=== PATIENT | male | born 1950 | race Asian ===

== ENCOUNTER 2018-08-08 16:24 | Inpatient (IN) | payer MEDICARE, OTHER ==
[~2018-08-08] VITALS: Ht 172.7 cm; Wt 71.2 kg
[2018-08-08] MEDS ORDERED: ATOR10TA84 PO (16:58)
[2018-08-08] MEDS ORDERED: METF-960 PO (16:58)
[2018-08-08] MEDS ORDERED: TELM20 PO (16:58)
[2018-08-08] MEDS ORDERED: INSU100C6 SQ (16:58)
[2018-08-08 17:23] LABS: BASOPHILS % (AUTO) 0.7 % (0.0-2.0); EOSINOPHILS % (AUTO) 3.3 % (1.0-6.0); HEMATOCRIT 40.9 % (41-53); HEMOGLOBIN 13.8 g/dL (13.5-17.5); LYMPHOCYTES # (AUTO) 1.8 K/uL (1.0-4.8); LYMPHOCYTES % (AUTO) 20.1 % (22.0-44.0); MEAN CORPUSCULAR HEMOGLOBIN 32.8 pg (26.0-34.0); MEAN CORPUSCULAR HGB CONC 33.8 G/dL (31.0-37.0); MEAN CORPUSCULAR VOLUME 97 fL (80-100); MONOCYTES # (AUTO) 0.6 K/uL (0.1-1.0); MONOCYTES % (AUTO) 6.9 % (2.0-9.0); NEUTROPHILS # (AUTO) 6.2 K/uL (1.8-7.7); PLATELET COUNT (AUTO) 266 K/uL (150-450); RED BLOOD CELL COUNT(AUTO) 4.21 MIL/uL (4.50-5.90)
[2018-08-08 17:36] LABS: PROTHROMBIN TIME 10.1 SEC (9.4-11.6)
[2018-08-08 17:37] LABS: ANION GAP 8 mmol/L (8-16); CALCIUM, TOTAL 9.4 mg/dL (8.8-10.5); CARBON DIOXIDE 30 mmol/L (22-29); CHLORIDE 100 mmol/L (98-107); CREATININE 0.99 mg/dL (0.60-1.30); GLOMERULAR FILTR. RATE CALC > 60 mL/min (>60); GLUCOSE,RANDOM 122 mg/dL (70-110); POTASSIUM 3.8 mmol/L (3.5-5.1); SODIUM SERUM 138 mmol/L (136-145); UREA NITROGEN, BLOOD 19 mg/dL (7-18)
[2018-08-08 17:40] LABS: ALANINE AMINOTRANSFERASE 41 U/L (12-78); ALBUMIN 3.9 g/dL (3.4-5.0); ALKALINE PHOSPHATASE 74 U/L (46-116); ASPARTATE AMINOTRANSFERASE 27 U/L (15-37); BILIRUBIN,TOTAL 0.5 mg/dL (0.1-1.0); TOTAL PROTEIN, SERUM 7.3 g/dL (6.4-8.2)
[2018-08-08 17:49] LABS: B-TYPE NATRIURETIC PEPTIDE 19 pg/mL (0-100)
[2018-08-08 18:04] LABS: LIPASE 4084 U/L (73-393)
[2018-08-08 18:19] LABS: APPEARANCE,URINE CLEAR (CLEAR); BILIRUBIN,URINE NEGATIVE (NEGATIVE); GLUCOSE, URINE (UA) 100 mg/dL (NEGATIVE); KETONES,URINE NEGATIVE (NEGATIVE); LEUKOCYTE ESTERASE ,URINE NEGATIVE (NEGATIVE); NITRATE,URINE NEGATIVE (NEGATIVE); OCCULT BLOOD,URINE NEGATIVE (NEGATIVE); PH,URINE 6.5 (5.0-8.0); PROTEIN,URINE NEGATIVE (NEGATIVE); UROBILINOGEN,URINE 0.2 mg/dL (<=1.0)
[2018-08-08 18:34] LABS: BACTERIA,URINE None Seen /HPF (None Seen); RBC,URINE None Seen /HPF (0-2); SQUAMOUS EPITHELIAL CELL,UR Rare /LPF (None Seen); WBC,URINE None Seen /HPF (0-5)
[2018-08-08] MEDS ORDERED: MAGNESIUM HYDROXIDE SUSPENSION 30 ML UDCUP PO PRN (21:00)
[2018-08-08] MEDS ORDERED: ONDANSETRON HCL 4 MG/2 ML VIAL IVP PRN (21:00)
[2018-08-08] MEDS ORDERED: MORPHINE SULFATE 4 MG/ML SYRINGE IVP PRN (21:00)
[2018-08-08] MEDS ORDERED: SODIUM CHLORIDE 0.9% 1,000 ML IV SCH (21:00)
[2018-08-08] MEDS ORDERED: DEXTROSE 50%-WATER 25 GM/50 ML SYRINGE IVP PRN (21:00)
[2018-08-08] MEDS ORDERED: ACETAMINOPHEN 325 MG TABLET PO PRN (21:00)
[2018-08-08] MEDS: PANTOPRAZOLE SODIUM 40 MG/VIAL IVP SCH (21:07)
[2018-08-08] MEDS: DOCUSATE SODIUM 100 MG CAPSULE PO SCH (21:18)
[2018-08-08 21:48] VITALS: BP 135/85
[2018-08-08] MEDS: METOPROLOL TARTRATE 25 MG TABLET PO SCH (22:13)
[2018-08-08] MEDS: INSULIN LISPRO 100 UNITS/ML SQ PRN (22:14)
[2018-08-08] MEDS: APIXABAN 5 MG TABLET PO SCH (23:06)
[2018-08-08 23:51] VITALS: BP 115/59
[2018-08-09] MEDS ORDERED: PNEUMOCOCCAL VACCINE POLYVALENT 0.5 ML VIAL [PPSV23] IM ONE (00:30)
[2018-08-09 01:09] LABS: GLUCOMETER DEV NAME(LOC) 6N.2; GLUCOSE,POINT OF CARE 174 MG/DL (70-110)
[2018-08-09 04:14] VITALS: BP 113/68
[2018-08-09] MEDS ORDERED: INSLAN SQ (06:42)
[2018-08-09 06:54] LABS: GLUCOMETER DEV NAME(LOC) 6N.1; GLUCOSE,POINT OF CARE 133 MG/DL (70-110)
[2018-08-09 06:58] LABS: ANION GAP 6 mmol/L (8-16); CALCIUM, TOTAL 8.8 mg/dL (8.8-10.5); CARBON DIOXIDE 30 mmol/L (22-29); CHLORIDE 103 mmol/L (98-107); CREATININE 0.94 mg/dL (0.60-1.30); GLOMERULAR FILTR. RATE CALC > 60 mL/min (>60); GLUCOSE,RANDOM 142 mg/dL (70-110); LIPASE 282 U/L (73-393); POTASSIUM 4.1 mmol/L (3.5-5.1); SODIUM SERUM 139 mmol/L (136-145); UREA NITROGEN, BLOOD 17 mg/dL (7-18)
[2018-08-09 07:35] VITALS: BP 117/60
[2018-08-09] MEDS ORDERED: APIX5TAB PO (08:41)
[2018-08-09] MEDS ORDERED: metoprolol PO (08:41)
[2018-08-09] MEDS: DOCUSATE SODIUM 100 MG CAPSULE PO SCH (08:49)
[2018-08-09] MEDS: APIXABAN 5 MG TABLET PO SCH (08:49)
[2018-08-09] MEDS: PANTOPRAZOLE SODIUM 40 MG/VIAL IVP SCH (08:50)
[2018-08-09 11:34] VITALS: BP 120/72
[2018-08-09] MEDS: INSULIN LISPRO 100 UNITS/ML SQ PRN (12:11)
[2018-08-09] MEDS: METOPROLOL TARTRATE 25 MG TABLET PO SCH (12:15)
[2018-08-09 14:24] LABS: GLUCOMETER DEV NAME(LOC) 6N.2; GLUCOSE,POINT OF CARE 216 MG/DL (70-110)
== END 2018-08-09 13:30 | disposition home or self-care (01) | DRG 440 ==
LOC: EMS 16:25 → 6N 21:34
PROVIDERS: ADMIT Internal Medicine; ATTEND Internal Medicine
PROC: 3E0234Z Introduction of Serum, Toxoid and Vaccine into Muscle, Percutaneous Approach (ICD-10-PCS; principal; 2018-08-09)
DX: K85.90 Acute pancreatitis without necrosis or infection, unspecified (principal); E11.40 Type 2 diabetes mellitus with diabetic neuropathy, unspecified; E78.00 Pure hypercholesterolemia, unspecified; I10 Essential (primary) hypertension; I48.2 Chronic atrial fibrillation; Z79.4 Long term (current) use of insulin; Z23 Encounter for immunization; Z53.20 Procedure and treatment not carried out because of patient's decision for unspecified reasons; Z82.49 Family history of ischemic heart disease and other diseases of the circulatory system; Z83.3 Family history of diabetes mellitus; Z87.11 Personal history of peptic ulcer disease; Z90.49 Acquired absence of other specified parts of digestive tract
CPT/HCPCS: 74022; 76705; 93005; C9113; G0378; J7030